=== PATIENT | male | born 1995 | race Caucasian/White ===

== ENCOUNTER 2018-02-08 17:57 | Emergency (ER) | payer OTHER ==
[~2018-02-08] VITALS: Ht 172.7 cm; Wt 64.4 kg
[~2018-02-08 17:57] MED LIST: CLEOCIN300 MG PO; MOTRIN800 MG PO; NORCO 5/3251 TABLET PO
[2018-02-08 19:50] VITALS: BP 132/82
== END 2018-02-08 19:51 | disposition home or self-care (01) ==
LOC: EME 17:57
DX: F19.10 Other psychoactive substance abuse, uncomplicated (principal); F17.200 Nicotine dependence, unspecified, uncomplicated
CPT/HCPCS: 99281; 99284